=== PATIENT | female | born 1930 | race Caucasian/White ===

== ENCOUNTER → 2017-09-11 | Emergency (ER) | payer OTHER ==
[~2017-09-11] VITALS: Ht 152.4 cm; Wt 64.9 kg
[~2017-09-11] MED LIST: CATAPRES0.2 MG; PREVACID30 MG; SETRALINE; VERAPAMIL HCL240 M1; ZETIA10 MG; ZOCOR40 MG
== END | disposition home or self-care (01) ==
LOC: ER 14:08
DX: K29.70 Gastritis, unspecified, without bleeding (principal)

== ENCOUNTER 2018-03-06 11:54 | Emergency (ER) | payer OTHER ==
[~2018-03-06] VITALS: Ht 149.9 cm; Wt 64.9 kg
== END 2018-03-06 20:13 | disposition home or self-care (01) ==
LOC: ER 11:54 → EDBD 12:21 → ER 12:21
DX: S00.03XA Contusion of scalp, initial encounter (principal); R63.0 Anorexia; W18.09XA Striking against other object with subsequent fall, initial encounter; Y93.89 Activity, other specified; Y92.018 Other place in single-family (private) house as the place of occurrence of the external cause; Y99.8 Other external cause status